=== PATIENT | male | born 1990 | race Caucasian/White ===

== ENCOUNTER 2019-01-03 12:58 | Emergency (ER) | payer OTHER ==
[~2019-01-03] VITALS: Ht 172.7 cm; Wt 77.1 kg
[2019-01-03 16:47] VITALS: BP 123/76
== END 2019-01-03 16:48 | disposition home or self-care (01) ==
LOC: ER 13:02
DX: F10.129 Alcohol abuse with intoxication, unspecified (principal); Y90.9 Presence of alcohol in blood, level not specified